=== PATIENT | female | born 1965 | race Caucasian/White ===

== ENCOUNTER → 2017-07-24 | Outpatient (CLI) | payer OTHER | LOC: FIMAGING 08:14 | PROVIDERS: ATTEND Family Medicine | DX: Z12.31 Encounter for screening mammogram for malignant neoplasm of breast (principal); Z80.3 Family history of malignant neoplasm of breast | CPT/HCPCS: G0202 ==

== ENCOUNTER → 2018-08-02 | Outpatient (CLI) | payer OTHER | LOC: FIMAGING 08:29 | PROVIDERS: ATTEND Family Medicine | DX: Z12.31 Encounter for screening mammogram for malignant neoplasm of breast (principal); Z80.3 Family history of malignant neoplasm of breast ==